=== PATIENT | male | born 1965 | race Two or more races ===

== ENCOUNTER 2025-02-13 11:34 | Emergency (ER) | payer BC, SELFPAY ==
[2025-02-13 11:37] VITALS: BP 170/92
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
== END 2025-02-13 13:01 | disposition home or self-care (01) ==
LOC: EMR 11:34
PROVIDERS: EMERGENCY PHYSICIAN Emergency Medicine; FAMILY PHYSICIAN Family Medicine
DX: S60.032A Contusion of left middle finger without damage to nail, initial encounter (principal); S60.022A Contusion of left index finger without damage to nail, initial encounter; W36.3XXA Explosion and rupture of pressurized-gas tank, initial encounter; Y99.0 Civilian activity done for income or pay
CPT/HCPCS: 99283; 73130